=== PATIENT | female | born 1945 | race Caucasian/White ===

== ENCOUNTER 2017-08-03 15:31 | Emergency (ER) | payer MEDICARE, BC ==
[~2017-08-03] VITALS: Ht 162.6 cm; Wt 61.2 kg
[2017-08-03] MEDS ORDERED: FLEXERIL (17:02)
[2017-08-03] MEDS ORDERED: DOXE25CA3 PO (17:02)
[2017-08-03] MEDS ORDERED: BUDESONIDE PO (17:02)
[2017-08-03 17:22] LABS: BASOPHILS % (AUTO) 0.4 % (0.0-2.0); EOSINOPHILS # (AUTO) 0.2 K/uL (0.0-0.7); EOSINOPHILS % (AUTO) 1.9 % (0.0-7.0); HEMATOCRIT 38.2 % (31.2-41.9); HEMOGLOBIN 12.9 g/dL (10.9-14.3); LYMPHOCYTES # (AUTO) 1.9 K/uL (20.0-40.0); LYMPHOCYTES % (AUTO) 19.2 % (20.5-51.5); MEAN CORPUSCULAR HEMOGLOBIN 30.6 uug (24.7-32.8); MEAN CORPUSCULAR HGB CONC 34 g/dL (32.3-35.6); MEAN CORPUSCULAR VOLUME 90.6 fL (75.5-95.3); MONOCYTES # (AUTO) 0.4 K/uL (2.0-10.0); MONOCYTES % (AUTO) 4.5 % (0.0-11.0); NEUTROPHILS # (AUTO) 7.2 K/uL (1.8-8.9); PLATELET COUNT (AUTO) 205 K/uL (179-408); RED BLOOD CELL COUNT(AUTO) 4.22 MIL/uL (3.63-4.92); WHITE BLOOD COUNT (AUTO) 9.7 K/uL (3.8-11.8)
[2017-08-03] MEDS: IV NORMAL SALINE 1000 ML BAG IV ONE (17:27)
[2017-08-03] MEDS: ONDANSETRON 4 MG/2 ML VIAL IV ONE (17:27)
[2017-08-03 17:30] LABS: CREATININE 0.9 mg/dL (0.6-1.3); POTASSIUM 4.4 mmol/L (3.5-5.1)
[2017-08-03 17:36] LABS: BILIRUBIN,DIRECT 0.1 mg/dL (0.0-0.2); BILIRUBIN,TOTAL 0.3 mg/dL (0.2-1.0)
[2017-08-03] MEDS ORDERED: ONDANSETRON 4 MG/2 ML VIAL ONE ×2 (17:42→20:00)
[2017-08-03 19:01] LABS: *BILIRUBIN,URIN NEGATIVE (NEGATIVE); *BLOOD, URINE Trace-intact (NEGATIVE); *COLOR,URINE YELLOW (YELLOW); *KETONES,URINE 1+ (NEGATIVE); *PROTEIN,URINE NEGATIVE (NEGATIVE); *UROBILINOGEN,URINE 0.2 E.U./dl (NORMAL); LEUKOCYTE ESTERASE ,URINE NEGATIVE (NEGATIVE); NITRITE, URINE NEGATIVE (NEGATIVE); UGLUCOSE NEGATIVE (NEGATIVE)
[2017-08-03 19:43] LABS: *CLARITY,URINE SLIGHTLY HAZY (CLEAR)
[2017-08-03 19:44] LABS: MUCUS,URINE FEW /LPF (0-FEW); SQUAMOUS EPITHELIAL CELL,UR MODERATE /HPF (NONE SEEN); WBC,URINE 0-3 /HPF (0-3)
[2017-08-03] MEDS: HYDROMORPHONE 1 MG/1 ML DISP.SYRIN IV ONE (19:50)
[2017-08-03] MEDS: ONDANSETRON IV *ER 4 MG/2 ML VIAL IV ONE (19:51)
[2017-08-03] MEDS ORDERED: HYDROMORPHONE 2 MG/1 ML DISP.SYRIN ONE (20:00)
--- NOTE | 2017-08-03 20:28 | NUR ---
Pt sts she is feeling better. Pt stable for discharge per Md. IV dc'd, catheter intact. Drsg applied. No problems noted to site. Pt given ACI. Pt verbalized understanding of dc instructions. Pt ambulated out of ER with steady gait with one person assist out to awaiting ride home.
[2017-08-03 20:31] VITALS: BP 143/63
== END 2017-08-03 20:32 | disposition home or self-care (01) ==
LOC: ER 15:32
DX: K57.30 Diverticulosis of large intestine without perforation or abscess without bleeding (principal); I25.10 Atherosclerotic heart disease of native coronary artery without angina pectoris; I70.0 Atherosclerosis of aorta; K44.9 Diaphragmatic hernia without obstruction or gangrene
CPT/HCPCS: 36415; 74176; 80048; 80076; 81001; 83690; 85025; 87086; 96361; 96374 ×2; 96375; 99285; A4663; J1170; J2405 ×2; J7030

== ENCOUNTER 2018-12-29 11:21 | Emergency (ER) | payer MEDICARE, BC ==
[~2018-12-29] VITALS: Ht 162.6 cm; Wt 61.2 kg
[~2018-12-29 11:21] MED LIST: BUDESONIDE PO; DOXE25CA3 PO; FLEXERIL
[2018-12-29] MEDS ORDERED: predniSONE 50 MG TABLET PO ONE (12:00)
[2018-12-29] MEDS ORDERED: predniSONE 50 MG TABLET ONE (12:06)
--- NOTE | 2018-12-29 12:07 | NUR ---
PATIENT WAS SEEN BY MD. MEDICATION GIVEN ORDERED. DC, RX (INCLUDING PRECAUTIONS) AND FOLLOW UP INSTRUCTIONS GIVEN AND EXPLAINED TO PATIENT WHO STATES SHE UNDERSTANDS ALL INSTRUCTIONS.
== END 2018-12-29 12:09 | disposition home or self-care (01) ==
LOC: ER 11:21
DX: R21 Rash and other nonspecific skin eruption (principal); Z88.1 Allergy status to other antibiotic agents; Z88.8 Allergy status to other drugs, medicaments and biological substances; Z79.899 Other long term (current) drug therapy
CPT/HCPCS: 99283; J7512; A4663

== ENCOUNTER 2020-01-13 19:11 | Emergency (ER) | payer MEDICARE, BC ==
[~2020-01-13] VITALS: Ht 162.6 cm; Wt 61.2 kg
--- NOTE | 2020-01-13 19:20 | NUR ---
Pt brought herself in to the ER, ambulated in steady gait. But appeared to need standby assistance due to complaints of dizziness, explained it as, "room is spinning". According to her, she experienced it 3 weeks ago, x 1 episode. And today as she was getting out of bed. Prior this, she has not had any episodes of these in the past. Denies chest pain or headache. Respirations even and unlabored. No signs of cardiorespiratory distress noted. Side rails up x 2. EKG done. Tele monitor started, she is NSR at this time. Bed locked in place.
--- NOTE | 2020-01-13 19:50 | NUR ---
Dr. Smiley at bedside for MSE.
[2020-01-13] MEDS ORDERED: ONDANSETRON ODT 4 MG TAB.RAPDIS ONE (20:14)
[2020-01-13] MEDS ORDERED: MECLIZINE HCL 25 MG TABLET ONE (20:15)
[2020-01-13] MEDS ORDERED: MECLIZINE HCL 25 MG TABLET PO ONE (20:15)
[2020-01-13] MEDS ORDERED: ONDANSETRON ODT 4 MG TAB.RAPDIS SL ONE (20:15)
[2020-01-13 20:43] LABS: EOSINOPHILS % (AUTO) 4.1 % (0.0-7.0); HEMATOCRIT 34.5 % (31.2-41.9); HEMOGLOBIN 11.7 g/dL (10.9-14.3); LYMPHOCYTES % (AUTO) 28.9 % (20.5-51.5); MEAN CORPUSCULAR HEMOGLOBIN 28.6 uug (24.7-32.8); MEAN CORPUSCULAR HGB CONC 34 g/dL (32.3-35.6); MEAN CORPUSCULAR VOLUME 84.3 fL (75.5-95.3); MONOCYTES % (AUTO) 6.2 % (0.0-11.0); PLATELET COUNT (AUTO) 225 K/uL (179-408); RED BLOOD CELL COUNT(AUTO) 4.09 MIL/uL (3.63-4.92); WHITE BLOOD COUNT (AUTO) 7.3 K/uL (3.8-11.8)
[2020-01-13 20:43] LABS: *BILIRUBIN,URIN NEGATIVE (NEGATIVE); *BLOOD, URINE NEGATIVE (NEGATIVE); *CLARITY,URINE CLEAR (CLEAR); *COLOR,URINE YELLOW (YELLOW); *KETONES,URINE TRACE (NEGATIVE); *UROBILINOGEN,URINE 0.2 E.U./dl (NORMAL); LEUKOCYTE ESTERASE ,URINE NEGATIVE (NEGATIVE); NITRITE, URINE NEGATIVE (NEGATIVE); UGLUCOSE NEGATIVE (NEGATIVE)
[2020-01-13 20:44] LABS: BASOPHILS # (AUTO) 0.1 K/uL (0.0-8.0); BASOPHILS % (AUTO) 0.8 % (0.0-2.0); EOSINOPHILS # (AUTO) 0.3 K/uL (0.0-0.7); LYMPHOCYTES # (AUTO) 2.1 K/uL (20.0-40.0); MONOCYTES # (AUTO) 0.5 K/uL (2.0-10.0); NEUTROPHILS # (AUTO) 4.4 K/uL (1.8-8.9)
[2020-01-13 20:47] LABS: CARBON DIOXIDE 25 mmol/L (21-32); CHLORIDE 103 mmol/L (98-107); CREATININE 1.1 mg/dL (0.6-1.3); GLUCOSE 104 mg/dL (74-106); POTASSIUM 4.2 mmol/L (3.5-5.1); UREA NITROGEN, BLOOD 20 mg/dL (7-18)
[2020-01-13 20:52] LABS: ALANINE AMINOTRANSFERASE 18 U/L (14-59); ALKALINE PHOSPHATASE 114 U/L (50-136); ASPARTATE AMINOTRANSFERASE 20 U/L (15-37); BILIRUBIN,DIRECT < 0.1 mg/dL (0.0-0.2); BILIRUBIN,TOTAL 0.3 mg/dL (0.2-1.0); TOTAL PROTEIN, SERUM 6.8 g/dL (6.4-8.2)
[2020-01-13 20:57] LABS: BACTERIA,URINE NONE SEEN /HPF (NONE SEEN); RBC,URINE 0-3 /HPF (0-3); SQUAMOUS EPITHELIAL CELL,UR FEW /HPF (NONE SEEN); WBC,URINE 0-3 /HPF (0-3)
--- NOTE | 2020-01-13 21:35 | NUR ---
Pt down to CT, assisted by Jorge A
--- NOTE | 2020-01-13 21:50 | NUR ---
Pt back from CT, stable condition.
[2020-01-13 22:07] VITALS: BP 139/66
--- NOTE | 2020-01-13 22:10 | NUR ---
Patient cleared for discharged to home. Written and verbal after care instructions given. Patient verbalizes understanding of instructions. Stressed follow up or return to ER for worsening s/s. Ambulated out of ER in steady gait, verbalized feeling better and is fully aware that she will be picked up and will not drive home. Discharged stable.
== END 2020-01-13 22:10 | disposition home or self-care (01) ==
LOC: ER 19:14
DX: H81.10 Benign paroxysmal vertigo, unspecified ear (principal); R94.31 Abnormal electrocardiogram [ECG] [EKG]; Z90.49 Acquired absence of other specified parts of digestive tract
CPT/HCPCS: 36415; 70030-TC; 70450; 85025; 85730; 93005; A4663; J8597; Q0162